=== PATIENT | female | born 1970 | race Caucasian/White ===

== ENCOUNTER → 2018-03-22 | Outpatient (REF) | payer OTHER ==
[2018-03-22 13:41] LABS: TOTAL PROTEIN 7.3 GM/DL (6.4-8.2)
[2018-03-22 13:51] LABS: FOLATE 18.5 NG/ML; VITAMIN B12 LEVEL 662 PG/ML
[2018-03-27 12:42] LABS: ALBUMIN 4.36 GM/DL (3.29-5.55); ALBUMIN % 59.7 % (55.8-66.1); ALPHA-1-GLOBULIN % 3.9 % (2.9-4.9); ALPHA-1-GLOBULINS 0.28 GM/DL (0.17-0.41); ALPHA-2-GLOBULINS 0.79 GM/DL (0.42-0.99); ALPHA-2-GLOBULINS % 10.8 % (7.1-11.8); BETA-1-GLOBULINS 0.39 GM/DL (0.28-0.60); BETA-1-GLOBULINS % 5.4 % (4.7-7.2); GAMMA GLOBULIN % 15.2 % (11.1-18.8)
[2018-03-27 12:43] LABS: BETA-2-GLOBULINS 0.37 GM/DL (0.19-0.55); GAMMA GLOBULINS 1.11 GM/DL (0.65-1.58)
[2018-03-28 10:17] LABS: CERULOPLASMIN 31.3 mg/dL (19.0-39.0); COPPER PLASMA 137 ug/dL (72-166); LEAD BLOOD ADULT None Detected ug/dL (0-4); MERCURY LEVEL None Detected ug/L (0.0-14.9); VITAMIN B6,PYRIDOXAL PHOSPHATE 7.7 ug/L (2.0-32.8); VITAMIN E(ALPHA TOCOPHEROL) 5.9 mg/L (7.0-25.1); VITAMIN E(GAMMA TOCOPHEROL) 1.4 mg/L (0.5-5.5)
== END ==
LOC: M LABNEURO 10:33
PROVIDERS: ATTEND Psychiatry & Neurology Neurology
DX: Z00.00 Encounter for general adult medical examination without abnormal findings (principal)